=== PATIENT | female | born 1970 | race Two or more races ===

== ENCOUNTER → 2025-03-06 | Outpatient (BNVA) | payer OTHER, SELFPAY | END | disposition home or self-care (01) | PROVIDERS: PCP Internal Medicine; Referring Provider Internal Medicine; Visit Provider Urology | DX: N13.2 Hydronephrosis with renal and ureteral calculous obstruction (principal); N39.46 Mixed incontinence; E11.9 Type 2 diabetes mellitus without complications; E66.9 Obesity, unspecified; Z68.33 Body mass index [BMI] 33.0-33.9, adult; Z87.440 Personal history of urinary (tract) infections; Z71.3 Dietary counseling and surveillance; E78.00 Pure hypercholesterolemia, unspecified | CPT/HCPCS: 81003; 99213; G0463 ==

== ENCOUNTER → 2025-04-14 | Outpatient (CLI) | payer OTHER, SELFPAY ==
--- NOTE | 2025-04-14 14:30 | XR_ITS ---
Examination: Retroperitoneal ultrasound, complete Technique: Multiple high resolution grayscale images of the retroperitoneum obtained, including kidneys and bladder. Exam date and time:April 14, 2025, 1450 hours INDICATIONS: History kidney stones, CT examination January 30, 2024 right hydronephrosis 2 mm distal right ureteral calculus, history of flank pain months FINDINGS: Right kidney 11.2 cm medial cortex 2.3 cm Mild right hydronephrosis Left kidney 12.3 cm in 4 days 2.0 cm Mild renal scar formation. No renal calculi. No bladder calculi, bilateral prevoid volume 371 cc IMPRESSION: Mild right hydronephrosis No renal calculi
--- NOTE | 2025-04-14 14:31 | XR_ITS ---
Examination: Cervical spine 3 views TECHNIQUE: AP lateral and AP odontoid cervical spine 3 views Date and time: April 14, 2025, 1546 hours. INDICATIONS: Work injury to the neck 2015 with persistent neck pain. FINDINGS: Adequate alignment subacromial bodies. No cervical fracture. Moderate to advanced degenerative disc disease C5-C6, C6-C7 with prominent anterior osteophytes Intact odontoid IMPRESSION: Moderate to advanced degenerative disc disease C5-C6, C6-C7
== END | disposition home or self-care (01) ==
PROVIDERS: PCP Internal Medicine; Visit Provider Urology
DX: M50.322 Other cervical disc degeneration at C5-C6 level (principal); N13.30 Unspecified hydronephrosis
CPT/HCPCS: 72040; 76770